=== PATIENT | female | born 1955 | race American Indian/Alaskan Native ===

== ENCOUNTER 2018-07-28 07:42 | Emergency (ER) | payer MEDICARE, OTHER ==
--- NOTE | 2018-07-28 08:30 | Emergency Department Report ---
HPI - General Chief Complaint: Fall Time Seen by Provider: 07/28/18 08:28 - HPI HPI: Patient fell 2 days ago complaining of right knee and right ankle pain. Was seen previously at [facility] for similar symptoms. Symptoms have been improving but not fast enough for her satisfaction. she states she ran out of the pain medicine they gave her a [place]dine 2 days ago. ED Past Medical Hx - Past Medical History Previous Medical History?: Yes Hx Hypertension: Yes Hx Diabetes: Yes Hx COPD: Yes Additional medical history: high cholestrol - Surgical History Past Surgical History?: Yes Additional Surgical History: bilateral carpal tunnel. x 1 - Social History Smoking Status: Current Every Day Smoker Substance Use Type: None - Medications Home Medications: Home Medications Medication Instructions Recorded Confirmed Last Taken Type Cyclobenzaprine [Flexeril] 10 mg PO TID PRN #15 tablet 07/28/18 Unknown Rx ED Review of Systems ROS: Stated complaint: PAIN ALL OVER/NEEDS MEDS Other details as noted in HPI Comment: All other systems reviewed and negative Endocrine: denies: no symptoms reported Gastrointestinal: denies: abdominal pain Genitourinary: denies: frequency Musculoskeletal: joint swelling Physical Exam - Physical Exam Vital Signs: Vital Signs 07/28/18 07:44 Temperature 97.6 F Pulse Rate 87 Respiratory 18 Rate Blood Pressure 128/69 O2 Sat by Pulse 100 Oximetry Physical Exam: Physical Exam: - General Limitations: No Limitations General appearance: alert, in no apparent distress. - Head Head exam: Present: atraumatic, normocephalic - Eye Eye exam: Present: normal appearance - ENT ENT exam: Present: mucous membranes moist - Neck Neck exam: Present: normal inspection - Respiratory Respiratory exam: Present: normal lung sounds bilaterally. Absent: respiratory distress - Cardiovascular Cardiovascular Exam: Present: normal rhythm. Absent: systolic murmur, diastolic murmur, rubs, gallop - GI/Abdominal GI/Abdominal exam: Present: soft, normal bowel sounds - Extremities Exam Extremities exam: Present: Right knee with minimal swelling, mild ecchymosis, good range of motion minimal tenderness. Right ankle with good range of motion and no tenderness to palpation, no swelling. - Back Exam Back exam: Present: normal inspection - Neurological Exam Neurological exam: Present: alert, oriented X3 - Psychiatric Psychiatric exam: normal affect and mood - Skin Skin exam: Present: warm, dry, intact, normal color. Absent: rash ED Course Vital Signs 07/28/18 07:44 Temperature 97.6 F Pulse Rate 87 Respiratory 18 Rate Blood Pressure 128/69 O2 Sat by Pulse 100 Oximetry Critical care attestation.: If time is entered above; I have spent that time in minutes in the direct care of this critically ill patient, excluding procedure time. ED Disposition Clinical Impression: Right knee sprain Qualifiers: Encounter type: initial encounter Involved ligament of knee: other ligament Qualified Code(s): S83.8X1A - Sprain of other specified parts of right knee, initial encounter Right ankle sprain Qualifiers: Encounter type: initial encounter Involved ligament of ankle: unspecified ligament Qualified Code(s): S93.401A - Sprain of unspecified ligament of right ankle, initial encounter Disposition: TO HOME OR SELFCARE Is pt being admited?: No Does the pt Need Aspirin: No Condition: Stable Instructions: Knee Sprain (ED), Knee Exercises (GEN), Ankle Exercises (GEN) Prescriptions: Cyclobenzaprine [Flexeril] 10 mg PO TID PRN #15 tablet PRN Reason: Muscle Spasm Referrals: ANSHUL GOYALQUINCY MD GISELLE [Primary Care Provider] - 3-5 Days
[2018-07-28 20:25] VITALS: BP 128/69
== END 2018-07-28 08:43 | disposition home or self-care (01) ==
LOC: ED 07:42
DX: S83.91XA Sprain of unspecified site of right knee, initial encounter (principal); S93.401A Sprain of unspecified ligament of right ankle, initial encounter; I10 Essential (primary) hypertension; E11.9 Type 2 diabetes mellitus without complications; J44.9 Chronic obstructive pulmonary disease, unspecified; E78.00 Pure hypercholesterolemia, unspecified; F17.200 Nicotine dependence, unspecified, uncomplicated; Z88.2 Allergy status to sulfonamides; Z88.8 Allergy status to other drugs, medicaments and biological substances; X58.XXXA Exposure to other specified factors, initial encounter; Y93.89 Activity, other specified; Y92.89 Other specified places as the place of occurrence of the external cause; Y99.8 Other external cause status
CPT/HCPCS: 82962; 99283